=== PATIENT | female | born 1965 | race Caucasian/White ===

== ENCOUNTER 2023-05-18 08:49 | Outpatient (OUT) | payer BC, SELFPAY ==
--- NOTE | 2023-05-18 09:50 | FL_ITS ---
The [address] [address] Patient Name: CHADWICK MCFADDEN MRN: [id number] date: 1965 Sex: F Assigned Patient Location: [place] Current Patient Location: [place] Accession/Order Number: [id number] Exam Date: 05/18/2023 09:25 Report Date: 05/18/2023 10:41 At the request of: JOYCE REA Procedure: FL cineradiography PROCEDURE: FL upper GI w air, FL cineradiography COMPARISON: None. HISTORY: GERD, Chest Pain TECHNIQUE: An air contrast upper gastrointestinal series was performed in the usual manner. Standard level fluoroscopic mode of operation utilized. FINDINGS: ESOPHAGUS:Several episodes of mild gastroesophageal reflux. No abnormal dilation, stricture, or mucosal irregularity. No hiatal hernia. STOMACH: No obstruction, mass, or ulceration. Normal motility. DUODENUM:No ulceration or diverticulum. OTHER: Negative. FL/NM cineradiography IMPRESSION: 1. Several episodes of mild gastroesophageal reflux occurred during the study. Otherwise unremarkable examination. Electronically authenticated by: FELICIA HANSON Date: 05/18/2023 10:41
--- NOTE | 2023-05-18 09:50 | FL_ITS ---
The [address] [address] Patient Name: CHADWICK MCFADDEN MRN: [id number] date: 1965 Sex: F Assigned Patient Location: [place] Current Patient Location: [place] Accession/Order Number: [id number] Exam Date: 05/18/2023 09:25 Report Date: 05/18/2023 10:41 At the request of: JOYCE REA Procedure: FL upper GI w air PROCEDURE: FL upper GI w air, FL cineradiography COMPARISON: None. HISTORY: GERD, Chest Pain TECHNIQUE: An air contrast upper gastrointestinal series was performed in the usual manner. Standard level fluoroscopic mode of operation utilized. FINDINGS: ESOPHAGUS:Several episodes of mild gastroesophageal reflux. No abnormal dilation, stricture, or mucosal irregularity. No hiatal hernia. STOMACH: No obstruction, mass, or ulceration. Normal motility. DUODENUM:No ulceration or diverticulum. OTHER: Negative. FL/FL upper GI w air IMPRESSION: 1. Several episodes of mild gastroesophageal reflux occurred during the study. Otherwise unremarkable examination. Electronically authenticated by: FELICIA HANSON Date: 05/18/2023 10:41
== END 2023-05-18 08:50 | disposition home or self-care (01) ==
LOC: FL 08:49
PROVIDERS: PCP Family Medicine; Visit Provider Family Medicine
DX: R07.9 Chest pain, unspecified (principal); K21.9 Gastro-esophageal reflux disease without esophagitis
CPT/HCPCS: 74246; 76120

== ENCOUNTER 2023-05-30 09:23 | Outpatient (OUT) | payer BC, SELFPAY ==
--- NOTE | 2023-05-30 | CT_ITS ---
The [address] [address] Patient Name: CHADWICK MCFADDEN MRN: [id number] date: 1965 Sex: F Assigned Patient Location: CT Current Patient Location: Accession/Order Number: [id number] Exam Date: 05/30/2023 09:32 Report Date: 06/01/2023 07:58 At the request of: JOYCE REA Procedure: CT lung screening low-dose EXAMINATION: CT lung screening low-dose HISTORY: R07.9 chest pain COMPARISON: No relevant comparison available. TECHNIQUE: Axial, Coronal, and Sagittal images were created without the administration of IV contrast material. Dose reduction techniques were achieved by using automated exposure control and/or adjustment of mA and/or kV according to patient size and/or use of iterative reconstruction technique. FINDINGS: LUNGS: Scattered subcentimeter calcified and noncalcified pulmonary nodules. The largest noncalcified nodule measures 6 mm right lower lobe axial image 111/112 PLEURA: No mass, effusion, or pneumothorax. VASCULATURE: No abnormality. SHRUTHI: No mass or pathologic adenopathy. MEDIASTINUM: No mass or pathologic adenopathy. CARDIAC: No enlargement, pericardial thickening, or significant calcification. AORTA: No aortic aneurysm. Mild atherosclerosis CHEST WALL: No mass or axillary adenopathy BONES: No bone lesion or fracture. LIMITED ABDOMEN: No suspicious findings. Limited images of the upper abdomen. OTHER: Negative. CT/CT lung screening low-dose IMPRESSION: LUNG SCREENING: Lung-RADS Category 2- Benign Appearance or Behavior. Nodules with a very low likelihood of becoming a clinically active cancer due to size or lack of growth. 2. Continue annual screening with LDCT in 12 months. Electronically authenticated by: HUYEN KABA Date: 06/01/2023 07:58
== END 2023-05-30 09:24 | disposition home or self-care (01) ==
PROVIDERS: PCP Family Medicine; Visit Provider Family Medicine
DX: R07.9 Chest pain, unspecified (principal); R91.8 Other nonspecific abnormal finding of lung field
CPT/HCPCS: 71271

== ENCOUNTER 2023-10-30 08:27 | Outpatient (OUT) | payer BC, SELFPAY ==
[2023-10-30 09:09] LABS: Basophils Absolute Auto 0.1 10^3/uL (0.0-0.1); Basophils Percent Auto 0.7 % (0.2-2.0); Eosinophils Absolute Auto 0.6 10^3/uL (0.0-0.7); Eosinophils Percent Auto 6.4 % (0.9-7.0); Hematocrit 46.9 % (36.0-48.0); Immature Granulocytes Abs Auto 0.02 10^3/uL (0.00-0.03); Immature Granulocytes Pct Auto 0.2 % (0.0-0.5); Lymphocytes Absolute Auto 2.3 10^3/uL (1.2-3.8); Lymphocytes Percent Auto 24.9 % (20.5-60.0); Mean Corpuscular Hemoglobin 28.8 pg (26.7-34.0); Mean Corpuscular Volume 90.2 fL (81.0-99.0); Mean Platelet Volume 9.8 fL (9.5-13.5); Monocytes Absolute Auto 0.7 10^3/uL (0.3-0.8); Monocytes Percent Auto 7.3 % (1.7-12.0); Neutrophils Absolute Auto 5.5 10^3/uL (1.4-6.5); Neutrophils Percent Auto 60.5 % (43.0-75.0); Platelet Count 257 10^3/uL (150-450); Red Cell Distribution Width 12.2 % (11.0-15.0); White Blood Count 9.1 10^3/uL (4.0-11.0)
[2023-10-30 11:21] LABS: Alanine Aminotransferase 30 U/L (14-59); Albumin Level 3.7 g/dL (3.4-5.0); Alkaline Phosphatase 116 U/L (46-116); Anion Gap 12.7; Aspartate Amino Transferase 14 U/L (15-37); BUN Creatinine Ratio 14.1; Bilirubin Total 0.3 mg/dL (0.2-1.0); Calcium 9.1 mg/dL (8.5-10.1); Carbon Dioxide 30.5 mmol/L (21.0-32.0); Chloride 101 mmol/L (98-107); Chol HDL Ratio 4.9; Cholesterol 193 mg/dL (<=200); Estimated GFR (African America >60 (>=60); Estimated GFR (Non-African Ame >60 (>=60); Globulin 3.6 g/dL; Glucose 98 mg/dL (74-106); HDL Cholesterol 39 mg/dL (40-60); Potassium 4.2 mmol/L (3.5-5.1); Sodium 140 mmol/L (136-145); Thyroid Stimulating Hormone 0.913 uIU/mL (0.358-3.740); Total Protein 7.3 g/dL (6.4-8.2); Triglycerides 198 mg/dL (<=150); VLDL CHOLESTEROL 39.6 mg/dL
[2023-10-30 11:26] LABS: Free T4 0.95 ng/dL (0.76-1.46)
[2023-10-30 12:53] LABS: Estimated Average Glucose 123 mg/dL; Glycohemoglobin A1C 5.9 % (4.5-6.2)
== END 2023-10-30 08:28 | disposition home or self-care (01) ==
LOC: LAB 08:28
PROVIDERS: PCP Family Medicine; Visit Provider Family Medicine
DX: Z00.00 Encounter for general adult medical examination without abnormal findings (principal); Z12.11 Encounter for screening for malignant neoplasm of colon; R53.83 Other fatigue
CPT/HCPCS: 36415; 80053; 80061; 83036; 84439; 84443; 85025

== ENCOUNTER 2024-07-15 08:08 | Outpatient (OUT) | payer BC, SELFPAY ==
--- OUTSIDE RECORDS SUMMARY | 2024-07-15 08:29 | XMS_ITS | CCD ---
Author Organization [facility] CliniSyvt Care Team Providers Care Rn Building Name Role Phone Juli Barrios Unavailable DR JOYCE ARCE Primary Care Unavailable LAURA, DR MAR Admitting Unavailable LAURA, DR MAR Attending Unavailable LAURA, DR MAR Consulting Unavailable FELICIA ESTEVEZ Consulting Unavailable LARRY MADDOX Consulting Unavailable ÁLVARO, DR COOK Admitting Unavailable ÁLVARO, DR COOK Attending Unavailable ÁLVARO, DR COOK Primary Care Unavailable ÁLVARO, DR COOK Consulting Unavailable Saumya Bravo Unavailable Justin ESCUDERO Attending Unavailable Joyce Arce Referring Unavailable Allergies Allergy Classification Reported Allergen(s) Allergy Type Date of Onset Reaction(s) Facility (3 sources) penicillAMINE Drug Allergy hives [facility] [employer] Other (3 sources) cillin's Propensity to adverse reactions Unknown [facility] [employer] Other (1 source) Penicillin Drug Allergy [facility] Repository (2 sources) Cephalexin; Translations: [Keflex] Drug Allergy Unknown [facility] Repository (1 source) Penicillins; Translations: [penicillins] Propensity to adverse reactions (disorder) [facility] Repository Medications Current Medications Medication Drug Class(es) Dates Sig (Normalized) Sig (Original) [id number] 200 actuat albuterol 0.09 mg/actuat metered dose inhaler (1 source) beta2-Adrenergic Agonist Start: 05-22-2023 take 2 puff(s) by inhalation four times daily as needed Albuterol Sulfate HFA 108 (90 Base) MCG/ACT 2 puffs Inhalation 4 times a day prn Apr, Active amLODIPine 5 mg oral tablet (2 sources) Dihydropyridine Calcium Channel [place] amLODIPine Besylate 5 MG Oral for 30 Days Active azithromycin 250 mg oral tablet (1 source) Macrolide Antimicrobial Start: 05-22-2023 Azithromycin 250 MG 2 tablet on the first day, then 1 tablet daily for 4 days Orally Once a day for 5 day(s) Apr, Active benzonatate 200 mg oral capsule (1 source) Non-narcotic Antitussive Start: 05-22-2023 take 1 capsule by mouth every eight hours Benzonatate 200 MG 1 capsule Orally Three times a day Apr, Active cholecalciferol 0.05 mg oral capsule (2 sources) Vitamin D take 1 capsule by mouth once daily Vitamin D3 50 MCG (1999) take 1 capsule by mouth once daily Oral for 30 Days Active Lisinopril (3 sources) Angiotensin Converting Enzyme Inhibitor Lisinopril Active predniSONE 20 mg oral tablet (4 sources) Start: 05-28-2022 take 1 tablet by mouth every twelve hours predniSONE 20 MG 1 tablet Orally bid for 5 day(s) Apr, Active Completed/Discontinued Medications Medication Drug Class(es) Dates Sig (Normalized) Sig (Original) famotidine 20 mg oral tablet (3 sources) Histamine-2 Receptor Antagonist Start: 02-25-2021 take 1 tablet by mouth every twelve hours Famotidine 20 MG 1 tablet Orally Twice a day for 7 days Feb, Not-Taking fluticasone propionate 0.05 mg/actuat metered dose nasal spray (3 sources) Corticosteroid Start: 05-28-2022 take 2 spray(s) nasal route once daily Fluticasone Propionate 50 MCG/ACT 2 sprays Nasally Once a day for 14 day(s) May, Not-Taking omeprazole 20 mg delayed release oral capsule (2 sources) Proton Pump Inhibitor Start: 04-17-2023 Omeprazole 20 MG 1 capsule daily Orally Once a day for 30 days Mar, Not-Taking Problems Active Problems Problem Classification Problem Date Documented Da te Episodic/Chronic Chronic obstructive pulmonary disease and bronchiectasis (1 source) Bronchitis, not specified as acute or chronic Episodic Esophageal disorders (4 sources) Gastro-esophageal reflux disease without esophagitis; Translations: [Gastroesophageal reflux disease] Onset: 09-10-2021 Chronic Essential hypertension (4 sources) Hypertensive disorder; Translations: [Essential (primary) hypertension] Onset: 09-10-2021 Chronic Immunizations and screening for infectious disease (1 source) Contact with and (suspected) exposure to other viral communicable diseases Episodic Other upper respiratory infections (1 source) Acute sinusitis, unspecified Episodic Substance-related disorders (3 sources) Nicotine dependence, cigarettes, uncomplicated; Translations: [Smoker] Onset: 09-10-2021 Chronic Unclassified (1 source) ESOPHAGITIS UNSPEC WITHOUT BLEEDING; Translations: [ESOPHAGITIS UNSPEC WITHOUT BLEEDING] Onset: 09-10-2021 Past or Other Problems Problem Classification Problem Date Documented Da te Episodic/Chronic Nonspecific chest pain (3 sources) Chest pain, unspecified; Translations: [CHEST PAIN UNSPECIFIED] Onset: 09-07-2021 Episodic Other aftercare (1 source) Other magneto specialist (current) drug therapy; Translations: [OTH GROUP HOME CURRENT DRUG THERAPY] Onset: 09-10-2021 Episodic Results Test Name Value Interpretation Reference Range Facility [facility] 06-03-2023 Forms [id number] 1#1.00TIFF Normal [facility] Ambulatory Visit Summaryon 1 Ambulatory Visit Summary CHADWICK MCFADDEN :1965 Visit Date:06/02/2023 Ambulatory Visit Instructions Your Care Team Attending Physician - Justin ESCUDERO MD Primary Care Physician - Joyce Arce MD Referring Physician - Joyce Arce MD This Is Your Medications List Contact prescribing physician if questions or concerns amlodipine (amLODIPine 5 mg Tab) ergocalciferol (Vitamin D2 2000 intl units oral capsule) famotidine (famotidine 20 mg Tab) lisinopril (lisinopril 40 mg Tab) pantoprazole (Protonix 40 mg Tab-DR) sucralfate (Carafate 1 gram Tab) Procedures Performed Cholecystectomy, Partial substernal thyroidectomy, Tubal . Discharge Vitals Heart Rate (Peripheral) 76 Respiratory Rate 16 Blood Pressure 152/92 Height 157.4 cm Height 62 in Weight 72 kg Weight 158.4 lb BMI 29.06 Medications What How Much When Instructions Unchanged amlodipine (amLODIPine 5 mg Tab) 1 Tablets By Mouth Every day Contact prescribing physician if questions or concerns Unchanged ergocalciferol (Vitamin D2 2000 intl units oral capsule) 1 Capsules By Mouth Every day Contact prescribing physician if questions or concerns Unchanged famotidine (famotidine 20 mg Tab) 1 Tablets By Mouth 2 times a day Contact prescribing physician if questions or concerns Unchanged lisinopril (lisinopril 40 mg Tab) 1 Tablets By Mouth Every day Contact prescribing physician if questions or concerns Unchanged pantoprazole (Protonix 40 mg Tab-DR) 1 Tablets By Mouth Every day Contact prescribing physician if questions or concerns Unchanged sucralfate (Carafate 1 gram Tab) 1 Tablets By Mouth Four times a day (before meals and at bedtime) Contact prescribing physician if questions or concerns Allergies Keflex (Hives) penicillins (Hives) Problems Ongoing - Any problem that you are currently receiving treatment for. Anxiety BMI 29.0-29.9,adult Cervical disc disease Chronic obstructive pulmonary disease Depression GERD (gastroesophageal reflux disease) HTN (hypertension) Overweight Tension type headache Vitamin D deficiency Normal [facility] RAD - MISCon 05-20-2023 RAD - MIS [id number] 1.00CD:127 Normal [facility] Physician Referralon 023 Physician Referral [id number] 1.00CD:127 Normal [facility] Physician Referral [id number] 1.00CD:127 Normal [facility] INSULINon 08-23-2022 Insulin 8.0 uIU/mL Normal 2.6-24.9 [facility] Comment on above: Performed By: #### L IPID, CMP, TSH, T7 #### [facility] [address] [address] [address] Kareen Manzanares CBC AUTO DIFFon 08-22-2022 BASO # 0.1 103/ul Normal 0.0-0.1 [facility] Comment on above: Performed By: #### L IPID, CMP, TSH, T7 #### [facility] [address] [address] [address] Kareen Manzanares Basophils/100 WBC (Bld) 0.7 % Normal 0.2-2.0 [facility] Comment on above: Performed By: #### L IPID, CMP, TSH, T7 #### [facility] [address] [place] [address] Dr. Kareen Manzanares EO # 0.4 103/ul Normal 0.0-0.7 [facility] Comment on above: Performed By: #### L IPID, CMP, TSH, T7 #### [facility] [address] [place] [address] Dr. Kareen Manzanares Eosinophils/100 WBC (Bld) 4.7 % Normal 0.9-7.0 [facility] Comment on above: Performed By: #### L IPID, CMP, TSH, T7 #### [facility] [address] [place] [address] Dr. Kareen Manzanares Erythrocyte distribution width (RBC) [Ratio] 12.3 % Normal 11.0-15.0 [facility] Comment on above: Performed By: #### L IPID, CMP, TSH, T7 #### [facility] [address] [place] [address] Dr. Kareen Manzanares Hematocrit (Bld) [Volume fraction] 45.4 % Normal 36.0-48.0 [facility] Comment on above: Performed By: #### L IPID, CMP, TSH, T7 #### [facility] [address] [place] [address] Dr. Kareen Manzanares Hemoglobin (Bld) [Mass/Vol] 14.7 g/dL Normal 12.0-16.0 [facility] Comment on above: Performed By: #### L IPID, CMP, TSH, T7 #### [facility] [address] [place] [address] Dr. Kareen Manzanares IG # 0.02 10e3/ul Normal 0.00-0.03 [facility] Comment on above: Performed By: #### L IPID, CMP, TSH, T7 #### [facility] [address] [place] [address] Dr. Kareen Manzanares IG % 0.2 % Normal 0.0-0.5 [facility] Comment on above: Performed By: #### L IPID, CMP, TSH, T7 #### [facility] [address] [place], [place] [id number] Dr. Kareen Manzanares LYMPH # 2.5 103/ul Normal 1.2-3.8 [facility] Comment on above: Performed By: #### L IPID, CMP, TSH, T7 #### [facility] [address] [place] [address] Dr. Kareen Manzanares Lymphocytes/100 WBC (Bld) 27.3 % Normal 20.5-60.0 [facility] Comment on above: Performed By: #### L IPID, CMP, TSH, T7 #### [facility] [address] [place] [address] Dr. Kareen Manzanares MANUAL DIFF REQ NO Normal [facility] Comment on above: Performed By: #### L IPID, CMP, TSH, T7 #### [facility] [address] [place] [address] Dr. Kareen Manzanares MCH (RBC) [Entitic mass] 29.1 pg Normal 26.7-34.0 [facility] Comment on above: Performed By: #### L IPID, CMP, TSH, T7 #### [facility] [address] [place] [address] Dr. Kareen Manzanares MCHC (RBC) [Mass/Vol] 32.4 g/dL Normal 29.9-35.2 [facility] Comment on above: Performed By: #### L IPID, CMP, TSH, T7 #### [facility] [address] [place] [address] Dr. Kareen Manzanares MCV (RBC) [Entitic vol] 89.7 fL Normal 81.0-99.0 [facility] Comment on above: Performed By: #### L IPID, CMP, TSH, T7 #### [facility] [address] [place] [address] Dr. Kareen Manzanares MONO # 0.7 103/ul Normal 0.3-0.8 [facility] Comment on above: Performed By: #### L IPID, CMP, TSH, T7 #### [facility] [address] [place] [address] Dr. Kareen Manzanares Monocytes/100 WBC (Bld) 7.8 % Normal 1.7-12.0 [facility] Comment on above: Performed By: #### L IPID, CMP, TSH, T7 #### [facility] [address] [place] [address] Dr. Kareen Manzanares NEUT # 5.4 103/ul Normal 1.4-6.5 [facility] Comment on above: Performed By: #### L IPID, CMP, TSH, T7 #### [facility] [address] [place] [address] Dr. Kareen Manzanares Neutrophils/100 WBC (Bld) 59.3 % Normal 43.0-75.0 [facility] Comment on above: Performed By: #### L IPID, CMP, TSH, T7 #### [facility] [address] [place] [address] Dr. Kareen Manzanares Platelet mean volume (Bld) [Entitic vol] 9.8 fL Normal 9.5-13.5 [facility] Comment on above: Performed By: #### L IPID, CMP, TSH, T7 #### [facility] [address] [place] [address] Dr. Kareen Manzanares PLT 315 103/ul Normal 150-450 [facility] Comment on above: Performed By: #### L IPID, CMP, TSH, T7 #### [facility] [address] [place] [address] Dr. Kareen Manzanares RBC 5.06 106/ul Normal 4.20-5.40 [facility] Comment on above: Performed By: #### L IPID, CMP, TSH, T7 #### [facility] [address] [place] [address] Dr. Kareen Manzanares WBC 9.1 103/ul Normal 4.0-11.0 [facility] Comment on above: Performed By: #### L IPID, CMP, TSH, T7 #### [facility] [address] [place] [address] Dr. Kareen Manzanares FREE THYROXINE INDEX T7on -2021 FTI 2.49 Normal 1.30-4.50 [facility] Comment on above: Performed By: #### L IPID, CMP, TSH, T7 #### [facility] [address] [address] [address] Kareen Manzanares T3U 35.0 % Normal 30.0-39.0 [facility] Comment on above: Performed By: #### L IPID, CMP, TSH, T7 #### [facility] [address] [address] [address] Kareen Manzanares T4 [Mass/Vol] 7.10 ug/dL Normal 4.80-13.90 [facility] Comment on above: Performed By: #### L IPID, CMP, TSH, T7 #### [facility] [address] [address] [address] Kareen Manzanares GLYCOHEMOGLOBIN A1Con 2021 ADA RECOMMENDATION SEE BELOW Normal [facility] Comment on above: Result Comment: ADA RECOMMENDED LIMIT 4.0 - 6.0 ADA THERAPEUTIC TARGET < 7.0 ACTION SUGGESTED > 7.0 Performed By: #### L IPID, CMP, TSH, T7 #### [facility] [address] [address] [address] Kareen Manzanares Glucose [Mass/Vol] 120 mg/dL Normal [facility] Comment on above: Performed By: #### L IPID, CMP, TSH, T7 #### [facility] [address] [address] [address] Kareen Manzanares HbA1c (Bld) [Mass fraction] 5.8 % Normal 4.5-6.2 [facility] Comment on above: Performed By: #### L IPID, CMP, TSH, T7 #### [facility] [address] [address] [address] Kareen Manzanares IRONon 08-22-2022 Iron [Mass/Vol] 134.0 ug/dL Normal 50.0-170.0 [facility] [place] Comment on above: Performed By: #### I HEIDI NASCIMENTO #### [facility] [address] [address] [address] Kareen Manzanares LIPID PROFILEon 08-22-2022 CHOL-HDL RATIO NORM SEE BELOW Normal [facility] Comment on above: Result Comment: 3.3 - 4.4 LOW RISK 4.4 - 7.1 AVERAGE RISK 7.1 - 11.0 MODERATE RISK >11.0 HIGH RISK Performed By: #### L IPID, CMP, TSH, T7 #### [facility] [address] [address] [address] Kareen Manzanares Cholesterol [Mass/Vol] 202 mg/dL Critically high <=200 [facility] Comment on above: Performed By: #### L IPID, CMP, TSH, T7 #### [facility] [address] [address] [address] Kareen Manzanares Cholesterol in HDL [Mass/Vol] 36 mg/dL Critically low 40-60 [facility] Comment on above: Performed By: #### L IPID, CMP, TSH, T7 #### [facility] [address] [address] [address] Kareen Manzanares Cholesterol in LDL [Mass/Vol] 120.2 mg/dL Normal [facility] Comment on above: Performed By: #### L IPID, CMP, TSH, T7 #### [facility] [address] [address] [address] Kareen Manzanares Cholesterol.total/Ch olesterol in HDL [Mass ratio] 5.6 {ratio} Normal [facility] Comment on above: Performed By: #### L IPID, CMP, TSH, T7 #### [facility] [address] [address] [address] Kareen Manzanares HDL NORMAL > or = 60 mg/dl - LOW CARDIOVASCULAR RISK <40 mg/dl - HIGH CARDIOVASCULAR RISK Normal [facility] Comment on above: Performed By: #### L IPID, CMP, TSH, T7 #### [facility] [address] [address] [address] Kareen Manzanares LDL CALC NORMAL SEE BELOW Normal [facility] Comment on above: Result Comment: <100 mg/dl OPTIMAL 100 - 129 mg/dl NEAR OR ABOVE OPTIMAL 130 - 159 mg/dl BORDERLINE HIGH 160 - 189 mg/dl HIGH >190 mg/dl VERY HIGH Performed By: #### L IPID, CMP, TSH, T7 #### [facility] [address] [address] [address] Kareen Manzanares Triglyceride [Mass/Vol] 229 mg/dL Critically high <=150 [facility] Comment on above: Performed By: #### L IPID, CMP, TSH, T7 #### [facility] [address] [address] [address] Kareen Manzanares VLDL CALC 45.8 mg/dL Normal [facility] Comment on above: Performed By: #### L IPID, CMP, TSH, T7 #### [facility] [address] [address] [address] Kareen Manzanares PROF 14(COMP METB)on 022 Albumin [Mass/Vol] 3.8 g/dL Normal 3.4-5.0 [facility] Comment on above: Performed By: #### L IPID, CMP, TSH, T7 #### [facility] [address] [place] [address] Dr. Kareen Manzanares Albumin/Globulin [Mass ratio] 1.1 {ratio} Normal [facility] Comment on above: Performed By: #### L IPID, CMP, TSH, T7 #### [facility] [address] [address] [address] Kareen Manzanares ALP [Catalytic activity/Vol] 136 U/L Critically high 46-116 [facility] Comment on above: Performed By: #### L IPID, CMP, TSH, T7 #### [facility] [address] [place] [address] Dr. Kareen Manzanares ALT [Catalytic activity/Vol] 30 U/L Normal 14-59 [facility] Comment on above: Performed By: #### L IPID, CMP, TSH, T7 #### [facility] [address] [address] [address] Kareen Manzanares Anion gap [Moles/Vol] 14.5 mmol/L Normal [facility] Comment on above: Performed By: #### L IPID, CMP, TSH, T7 #### [facility] [address] [address] [address] Kareen Manzanares AST [Catalytic activity/Vol] 24 U/L Normal 15-37 [facility] Comment on above: Performed By: #### L IPID, CMP, TSH, T7 #### [facility] [address] [address] [address] Kareen Manzanares Bilirubin [Mass/Vol] 0.3 mg/dL Normal 0.2-1.0 [facility] Comment on above: Performed By: #### L IPID, CMP, TSH, T7 #### [facility] [address] [address] [address] Kareen Manzanares Calcium [Mass/Vol] 9.4 mg/dL Normal 8.5-10.1 [facility] Comment on above: Performed By: #### L IPID, CMP, TSH, T7 #### [facility] [address] [place] [address] Dr. Kareen Manzanares Chloride [Moles/Vol] 98 mmol/L Normal 98-107 [facility] Comment on above: Performed By: #### L IPID, CMP, TSH, T7 #### [facility] [address] [place] [address] Dr. Kareen Manzanares CO2 [Moles/Vol] 28.7 mmol/L Normal 21.0-32.[address] [facility] Comment on above: Performed By: #### L IPID, CMP, TSH, T7 #### [facility] [address] [place] [address] Dr. Kareen Manzanares Creatinine [Mass/Vol] 0.67 mg/dL Normal 0.55-1.02 [facility] Comment on above: Performed By: #### L IPID, CMP, TSH, T7 #### [facility] [address] [place] [address] Dr. Kareen Manzanares EGFR-AF SAUDI ARABIAN >60 Normal >=[address] [facility] Comment on above: Performed By: #### L IPID, CMP, TSH, T7 #### [facility] [address] [place] [address] Dr. Kareen Manzanares EGFR-NON AF SAUDI ARABIAN >60 Normal >=60 [facility] Comment on above: Performed By: #### L IPID, CMP, TSH, T7 #### [facility] [address] [place], [place] [id number] Dr. Kareen Manzanares Globulin (S) [Mass/Vol] 3.6 g/dL Normal [facility] Comment on above: Performed By: #### L IPID, CMP, TSH, T7 #### [facility] [address] [place] [address] Dr. Kareen Manzanares Glucose [Mass/Vol] 104 mg/dL Normal 74-106 [facility] Comment on above: Performed By: #### L IPID, CMP, TSH, T7 #### [facility] [address] [place] [address] Dr. Kareen Manzanares Potassium [Moles/Vol] 4.2 mmol/L Normal 3.5-5.1 [facility] Comment on above: Performed By: #### L IPID, CMP, TSH, T7 #### [facility] [address] [place] [address] Dr. Kareen Manzanares Protein [Mass/Vol] 7.4 g/dL Normal 6.4-8.2 [facility] Comment on above: Performed By: #### L IPID, CMP, TSH, T7 #### [facility] [address] [place] [address] Dr. Kareen Manzanares Sodium [Moles/Vol] 137 mmol/L Normal 136-145 [facility] Comment on above: Performed By: #### L IPID, CMP, TSH, T7 #### [facility] [address] [address] [address] Kareen Manzanares Urea nitrogen [Mass/Vol] 10.0 mg/dL Normal 7.0-18.0 [facility] Comment on above: Performed By: #### L IPID, CMP, TSH, T7 #### [facility] [address] [address] [address] Kareen Manzanares Urea nitrogen/Creatinine [Mass ratio] 14.9 mg/mg Normal [facility] Comment on above: Performed By: #### L IPID, CMP, TSH, T7 #### [facility] [address] [address] [address] Kareen Manzanares TSHon 08-22-2022 TSH 0.678 uIU/mL Normal 0.358-3.740 [facility] Comment on above: Performed By: #### L IPID, CMP, TSH, T7 #### [facility] [address] [place], [place] [address] Dr. Kareen Manzanares VITAMIN D 25 OHon 08-22-2022 VIT D 25-OH 26.6 ng/mL Normal [facility] Comment on above: Performed By: #### I AZAM VITAD #### [facility] [address] [place], [place] [address] Dr. Kareen Manzanares VIT D RANGES SEE BELOW Normal [facility] Comment on above: Result Comment: <20 ng/mL Vit D deficient 20 - <30 ng/mL Vit D insufficient 30 - 100 ng/mL Vit D sufficient >100 ng/mL Potential Toxicity Performed By: #### I AZAM VITAD #### [facility] [address] [place], [place] [address] Dr. Kareen Manzanares COVID Quick Testingon 2021 Result Negative Elastifile Other CT Chest w/Contraston 2021 CT Chest w/Contrast HISTORY: Follow-up groundglass opacities. COMPARISON: CT chest 09/07/2021 TECHNIQUE: Multiple contiguous axial images of the chest were obtained following IV administration of 100 mL Isovue 300. Multiplanar reformats were acquired. All CT scans at this facility use dose modulation, iterative reconstruction, and/or weight based dosing when appropriate to reduce radiation dose to as low as reasonably achievable. FINDINGS: No axillary, mediastinal, or hilar lymphadenopathy. No thoracic aortic aneurysm or dissection. Atherosclerotic disease of the thoracic aorta. Heart size is within normal limits. No significant pericardial effusion. The esophagus is within normal limits. Stable tiny sub-solid right upper lobe nodule as seen on axial image 26 of 60. New right upper lobe sub-solid nodule measuring approximately 6 mm as seen on axial image 18 of 60. Stable sub-solid 4 mm nodule of the right middle lobe as seen on axial image 31 of 60. Stable tubular mid right middle lob nodule is seen on axial image 32 of 60. Stable 2 mm right middle lobe nodule is seen on axial image 26 of 60. Previously seen sub-solid 4 mm nodule of the left lower lobe is no longer definitively identified. Multiple additional tiny nodules are scattered throughout both lungs and do not appear significant changed. No consolidation, pneumothorax, or pleural effusion. No acute osseous abnormality. Visualized upper abdomen demonstrates no acute abnormality. IMPRESSION: New sub-solid 6 mm right upper lobe is nonspecific and may be infectious/inflammat ory in etiology. Previously seen nodules are stable. Follow-up CT of the chest without contrast in 6 months is recommended. Report reported and signed by Curtis Colvin on 01/08/2022 1156 Normal [facility] Specialist BNPon 09-07-2021 Natriuretic peptide B (Bld) [Mass/Vol] 46.0 pg/mL Normal <=900.0 [facility] Comment on above: Performed By: #### B MINI BACCARAT DEALER, HSTROPN, BMP #### [facility] [address] [address] [address] Kareen Manzanares CBC AUTO DIFFon 09-07-2021 BASO # 0.0 103/ul Normal 0.0-0.1 [facility] Comment on above: Performed By: #### L IPID, CMP, TSH, T7 #### [facility] [address] [address] [address] Kareen Manzanares Basophils/100 WBC (Bld) 0.3 % Normal 0.2-2.0 [facility] Comment on above: Performed By: #### L IPID, CMP, TSH, T7 #### [facility] [address] [address] [address] Kareen Manzanares EO # 0.1 103/ul Normal 0.0-0.7 [facility] Comment on above: Performed By: #### L IPID, CMP, TSH, T7 #### [facility] [address] [address] [address] Kareen Manzanares Eosinophils/100 WBC (Bld) 1.4 % Normal 0.9-7.0 [facility] Comment on above: Performed By: #### L IPID, CMP, TSH, T7 #### [facility] [address] [address] [address] Kareen Manzanares Erythrocyte distribution width (RBC) [Ratio] 12.8 % Normal 11.0-15.0 [facility] Comment on above: Performed By: #### L IPID, CMP, TSH, T7 #### [facility] [address] [place] [address] Dr. Kareen Manzanares Hematocrit (Bld) [Volume fraction] 44.1 % Normal 36.0-48.0 [facility] Comment on above: Performed By: #### L IPID, CMP, TSH, T7 #### [facility] [address] [place] [address] Dr. Kareen Manzanares Hemoglobin (Bld) [Mass/Vol] 14.7 g/dL Normal 12.0-16.0 [facility] Comment on above: Performed By: #### L IPID, CMP, TSH, T7 #### [facility] [address] [place] [address] Dr. Kareen Manzanares IG # 0.03 10e3/ul Normal 0.00-0.03 [facility] Comment on above: Performed By: #### L IPID, CMP, TSH, T7 #### [facility] [address] [place] [address] Dr. Kareen Manzanares IG % 0.3 % Normal 0.0-0.5 [facility] Comment on above: Performed By: #### L IPID, CMP, TSH, T7 #### [facility] [address] [place] [address] Dr. Kareen Manzanares LYMPH # 2.3 103/ul Normal 1.2-3.8 [facility] Comment on above: Performed By: #### L IPID, CMP, TSH, T7 #### [facility] [address] [place] [address] Dr. Kareen Manzanares Lymphocytes/100 WBC (Bld) 24.0 % Normal 20.5-60.0 [facility] Comment on above: Performed By: #### L IPID, CMP, TSH, T7 #### [facility] [address] [place] [address] Dr. Kareen Manzanares MANUAL DIFF REQ NO Normal [facility] Comment on above: Performed By: #### L IPID, CMP, TSH, T7 #### [facility] [address] [place] [address] Dr. Kareen Manzanares MCH (RBC) [Entitic mass] 28.8 pg Normal 26.7-34.0 [facility] Comment on above: Performed By: #### L IPID, CMP, TSH, T7 #### [facility] [address] [place] [address] Dr. Kareen Manzanares MCHC (RBC) [Mass/Vol] 33.3 g/dL Normal 29.9-35.2 [facility] Comment on above: Performed By: #### L IPID, CMP, TSH, T7 #### [facility] [address] [place] [address] Dr. Kareen Manzanares MCV (RBC) [Entitic vol] 86.3 fL Normal 81.0-99.0 [facility] Comment on above: Performed By: #### L IPID, CMP, TSH, T7 #### [facility] [address] [place] [address] Dr. Kareen Manzanares MONO # 0.4 103/ul Normal 0.3-0.8 [facility] Comment on above: Performed By: #### L IPID, CMP, TSH, T7 #### [facility] [address] [place] [address] Dr. Kareen Manzanares Monocytes/100 WBC (Bld) 4.2 % Normal 1.7-12.0 [facility] Comment on above: Performed By: #### L IPID, CMP, TSH, T7 #### [facility] [address] [place] [address] Dr. Kareen Manzanares NEUT # 6.7 103/ul Critically high 1.4-6.5 [facility] Comment on above: Performed By: #### L IPID, CMP, TSH, T7 #### [facility] [address] [place] [address] Dr. Kareen Manzanares Neutrophils/100 WBC (Bld) 69.8 % Normal 43.0-75.0 [facility] Comment on above: Performed By: #### L IPID, CMP, TSH, T7 #### [facility] [address] [place] [address] Dr. Kareen Manzanares Platelet mean volume (Bld) [Entitic vol] 9.3 fL Critically low 9.5-13.5 [facility] Comment on above: Performed By: #### L IPID, CMP, TSH, T7 #### [facility] [address] [address] [address] Kareen Manzanares PLT 314 103/ul Normal 150-450 [facility] Comment on above: Performed By: #### L IPID, CMP, TSH, T7 #### [facility] [address] [address] [address] Kareen Manzanares RBC 5.11 106/ul Normal 4.20-5.40 [facility] Comment on above: Performed By: #### L IPID, CMP, TSH, T7 #### [facility] [address] [address] [address] Kareen Manzanares WBC 9.5 103/ul Normal 4.0-11.0 [facility] Comment on above: Performed By: #### L IPID, CMP, TSH, T7 #### [facility] [address] [address] [address] Kareen Manzanares D-DIMERon 09-07-2021 D-DIMER 0.52 mg/L FEU Critically high 0.19-0.50 [facility] Comment on above: Performed By: #### L IPID, CMP, TSH, T7 #### [facility] [address] [address] [address] Kareen Manzanares D-DIMER COMMENTS SEE BELOW Normal [facility] Comment on above: Result Comment: Incr eases in D-Dimer concentration observed with thromboembolic events can be variable due to localization, size, and age of the thrombus. Therefore, a thromboembolic event cannot be diagnosed with certainty on the basis of the reference range. D-Dimers may also be elevated for a variety of disorders including: advanced age, , coronary disease, cancer, liver disease, infection, inflammation, hematoma, DIC, trauma, post-surgery, diabetes, thrombolytic or anticoagulant therapy, stress, and generalized hospitalization. critical value repeated and verified Performed By: #### L IPID, CMP, TSH, T7 #### [facility] [address] [place] [address] Dr. Kareen Manzanares PROF CHEM 8 (BAS METB)on Anion gap [Moles/Vol] 16.2 mmol/L Normal [facility] Comment on above: Performed By: #### L IPID, CMP, TSH, T7 #### [facility] [address] [place] [address] Dr. Kareen Manzanares Calcium [Mass/Vol] 9.7 mg/dL Normal 8.4-10.2 [facility] Comment on above: Performed By: #### L IPID, CMP, TSH, T7 #### [facility] [address] [place] [address] Dr. Kareen Manzanares Chloride [Moles/Vol] 96 mmol/L Critically low 98-107 [facility] Comment on above: Performed By: #### L IPID, CMP, TSH, T7 #### [facility] [address] [place] [address] Dr. Kareen Manzanares CO2 [Moles/Vol] 25.3 mmol/L Normal 22.0-30.0 [facility] Comment on above: Performed By: #### L IPID, CMP, TSH, T7 #### [facility] [address] [place] [address] Dr. Kareen Manzanares Creatinine [Mass/Vol] 0.81 mg/dL Normal 0.52-1.04 [facility] Comment on above: Performed By: #### L IPID, CMP, TSH, T7 #### [facility] [address] [place] [address] Dr. Kareen Manzanares EGFR-AF SAUDI ARABIAN >60 Normal >=60 [facility] Comment on above: Performed By: #### L IPID, CMP, TSH, T7 #### [facility] [address] [place] [address] Dr. Kareen Manzanares EGFR-NON AF SAUDI ARABIAN >60 Normal >=60 [facility] Comment on above: Performed By: #### L IPID, CMP, TSH, T7 #### [facility] [address] [place] [address] Dr. Kareen Manzanares Glucose [Mass/Vol] 194 mg/dL Critically high 74-106 [facility] Comment on above: Performed By: #### L IPID, CMP, TSH, T7 #### [facility] [address] [address] [address] Kareen Manzanares Potassium [Moles/Vol] 3.5 mmol/L Normal 3.4-5.0 [facility] Comment on above: Performed By: #### L IPID, CMP, TSH, T7 #### [facility] [address] [address] [address] Kareen Manzanares Sodium [Moles/Vol] 134 mmol/L Critically low 137-145 [facility] Comment on above: Performed By: #### L IPID, CMP, TSH, T7 #### [facility] [address] [place] [address] Dr. Kareen Manzanares Urea nitrogen [Mass/Vol] 10.0 mg/dL Normal 7.0-17.0 [facility] Comment on above: Performed By: #### L IPID, CMP, TSH, T7 #### [facility] [address] [address] [address] Kareen Manzanares Urea nitrogen/Creatinine [Mass ratio] 12.3 mg/mg Normal [facility] Comment on above: Performed By: #### L IPID, CMP, TSH, T7 #### [facility] [address] [place] [address] Dr. Kareen Manzanares TROPONIN, HIGH SENSITIVITYon 09-07-2021 HSTROP 15.5 pg/mL Normal 4.0-35.5 [facility] Comment on above: Result Comment: CUT- OFF POINTS HAVE BEEN ESTABLISHED BASED ON THE FOURTH UNIVERSAL DEFINITIONS OF MYOCARDIAL INFARCTION. THE UPPER REFERENCE LIMIT (URL) OF TROPONIN, DEFINED THE 99TH PERCENTILE OF cTnI DISTRIBUTION IN A REFERENCE POPULATION, HAS BEEN CONFIRMED THE DECISION THRESHOLD FOR IN DIAGNOSIS. Performed By: #### B MINI BACCARAT DEALER, HSTROPN, BMP #### [facility] [address] [address] [address] Kareen Manzanares XR CHEST 1 Von 09-07-2021 XR CHEST 1 V EXAMINATION: XR CHEST 1 V, 09/07/2021 12:56 PM EST HISTORY: CHEST PAIN, UNSPECIFIED COMPARISON: Chest 10/22/2011. TECHNIQUE: Chest x-ray: One view. FINDINGS: SUPPORT APPARATUS/POST-SURGI TEREZA CHANGES: None. CARDIOMEDIASTINAL SILHOUETTE: Normal. AIRWAYS/LUNGS: Low lung volumes with probable vascular crowding at the lung bases. No focal consolidation. PLEURAL SPACES: No pleural effusion or pneumothorax. BONES AND SOFT TISSUES: No acute abnormality. IMPRESSION: No acute cardiopulmonary process. Electronically authenticated by: FELICIA ESTEVEZ Date: 2021-09-07 13:30 Normal [facility] Vital Signs Date Time Vital Sign Value Performing Clinician Facility 05-22-2023 09:45-0400 Body height 161.29 cm Juli Barrios Other [facility] Other 05-22-2023 09:45-0400 Body mass index (BMI) [Ratio] 25.87 kg/m2 Juli Barrios Other [facility] Other 05-22-2023 09:45-0400 Body temperature 98.1 [degF] Juli Barrios Other [facility] Other 05-22-2023 09:45-0400 Body weight 67.31 kg Juli Barrios Other [facility] Other 05-22-2023 09:45-0400 Diastolic blood pressure 65 mm[Hg] Juli Barrios Other [facility] Other 05-22-2023 09:45-0400 Respiratory rate 18 /min Juli Barrios Other [facility] Other 05-22-2023 09:45-0400 SaO2% (BldA) [Mass fraction] 96 % Juli Barrios Other [facility] Other 05-22-2023 09:45-0400 Systolic blood pressure 121 mm[Hg] Juli Burksmond Other [facility] Other 04-17-2023 09:10-0400 Body height 161.29 cm Saumya Bravo Other [facility] Other 04-17-2023 09:10-0400 Body mass index (BMI) [Ratio] 26.5 kg/m2 Saumya Bravo Other [facility] Other 04-17-2023 09:10-0400 Body temperature 97.8 [degF] Saumya Bravo Other [facility] Other 04-17-2023 09:10-0400 Body weight 68.95 kg Saumya Bravo Other [facility] Other 04-17-2023 09:10-0400 Diastolic blood pressure 69 mm[Hg] Saumya Bravo Other [facility] Other 04-17-2023 09:10-0400 Respiratory rate 18 /min Saumya Bravo Other [facility] Other 04-17-2023 09:10-0400 SaO2% (BldA) [Mass fraction] 95 % Saumya Bravo Other [facility] Other 04-17-2023 09:10-0400 Systolic blood pressure 129 mm[Hg] Saumya Bravo Other [facility] Other 05-28-2022 14:20-0400 Body height 161.29 cm Juli Burksmond Other [facility] Other 05-28-2022 14:20-0400 Body mass index (BMI) [Ratio] 26.15 kg/m2 Juli Sophie Other [facility] Other 05-28-2022 14:20-0400 Body temperature 98.8 [degF] Juli Sophie Other [facility] Other 05-28-2022 14:20-0400 Body weight 68.04 kg Juli Sophie Other [facility] Other 05-28-2022 14:20-0400 Diastolic blood pressure 78 mm[Hg] Juli Sophie Other [facility] Other 05-28-2022 14:20-0400 Respiratory rate 18 /min Juli Sophie Other [facility] Other 05-28-2022 14:20-0400 SaO2% (BldA) [Mass fraction] 95 % Juli Sophie Other [facility] Other 05-28-2022 14:20-0400 Systolic blood pressure 175 mm[Hg] Juli Sophie Other [facility] Other Encounters Encounter Date Encounter Type Care Provider Facility Start: 06-02-2023 End: 06-03-2023 ambulatory Justin ESCUDERO Facility:[facility] Start: 05-22-2023 End: 05-22-2023 ambulatory Juli Barrios Other [facility] Other Start: 05-22-2023 Office outpatient vi sit 15 minutes Juli [facility] Start: 05-19-2023 ambulatory Facility:[facility] Start: 04-17-2023 End: 04-17-2023 ambulatory Saumya Bravo Other [facility] Other Start: 04-17-2023 Office outpatient vi sit 15 minutes Saumya Bravo [facility] Start: 08-22-2022 End: 08-23-[address] JOYCE ARCE Facility:[facility] Start: 05-28-2022 End: 05-28-2022 ambulatory Juli Barrios Other [facility] Other Start: 05-28-2022 Office outpatient vi sit 15 minutes Juli Sophie [facility] Start: 09-07-2021 End: 09-07-[address] JOYCE ARCE Facility:[facility] Payers Date Payer Category Payer Unknown [id number] 1965 Unknown [id number] 1965 Unknown [id number] 1957 [facility] RL74 [id number] Social History Date Type Detail Facility Sex Assigned At [facility] Other Clinical Note 06-02-2023 Note Date & Type Note Facility 06-02-2023 Note Chief Complaint consultation for GERD HPI Staff 57 year old female presents on consultation from Dr. Arce for GERD. [facility] with complaint of epigastric/chest pain. Was taking OTC Famotidine without relief. Omeprazole 20mg daily was started. PCP visit 05/05 with complaint of worsening pain. Protonix 40mg daily and Carafate 1gm QID was started; patient stopped these approximately two weeks after starting medications due to hives. She continues Famotidine. States symptoms have greatly improved. UGI completed 05/18 with several episodes of mild GERD. History of Present Illness 57 yo female with h/o htn, COPD, cervical disc disease, referred for GERD; patient with severe episode of burning epigastric pain, radiating to chest; seen at Urgent care, given omeprazole, was taking over the counter H2 jordan; no improvement, seen by PCP and placed on Protonix and Carafate; developed hives 2 weeks after starting medicines, so she discontinued both medicines; GERD now much better, back on H2 jordan bid; made some dietary changes; recent UGI with mild episodes of reflux, no hiatal hernia; patient denies dysphagia or odynophagia, no wt loss or early satiety; no N/V; no night time symptoms; no asa use, takes Aleve prn; abd operations significant for cholecystectomy and salpingectomy for tubal ; no fmhx of GI malignancy or IBD; smokes daily. Review of Systems PHQ Score Initial Depression Screen Score: 0 ROS - Provider Constitutional: no fever, no sweats, no weight loss. Eyes: no glasses, no blurred vision, no visual loss. ENMT: no dentures, no hoarseness, no swallowing difficulties, no hearing loss, no ear infection(s), no nose bleeds. Cardiovascular: normal blood pressure, no chest pain, regular heartbeat, no heart murmur. Respiratory: no shortness of breath, no cough, no asthma, no wheezing. Gastrointestinal: no nausea, no vomiting, no diarrhea, no constipation, no blood in stool, no change in bowel habits, no abdominal pain, no hepatitis. Genitourinary: no kidney stones, no urine infection, no dysuria. Musculoskeletal: no pain, no weakness. Skin: no changing moles, no rash, no skin lumps. Neurologic: no seizures, no epilepsy, no headache. Psychiatric: no emotional or psychiatric problem. Heme/Lymph: no bleeding problems, no anemia, no blood clots, no transfusions. Allergy/Immunologic: no swollen lymph nodes/glands, no IV drug abuse. Other: Additional ROS info: Except as noted in the above Review of Systems and in the History of Present Illness, all other systems have been reviewed and are negative or noncontributory. Physical Exam Vitals & Measurements HR: 76(Peripheral) RR: 16 BP: 152/92 HT: 62 in HT: 157.4 cm WT: 72 kg WT: 158.4 lb BMI: 29.06 HEENT: normal conjunctiva, sclera clear, no scleral icterus, EOM intact, PERRLA, oral mucosa moist without lesions. Neck: trachea midline, no mass, symmetric, no thyromegaly or nodules, no adenopathy Respiratory: lungs CTA, respirations non labored. Cardiovascular: regular rate and rhythm, murmur, no pedal edema or varicosities. Gastrointestinal: soft, non distended, no tenderness, no masses, no palpable hernias, diastasis recti no, no hepatosplenomegaly; normal bs Lymphatic: no cervical adenopathy, no supraclavicular adenopathy. Musculoskeletal: normal gait, digits and nails without infection, nodes, cyanosis, clubbing. Skin: no rashes, no lesions, no ulcers, no subcutaneous nodules, induration. Psychiatric/Neuro: oriented to time, place, person, judgement normal, affect appropriate for age, insight intact, no focal deficits. Tests: labs reviewed, x-rays reviewed, review of old records completed , Assessment/Plan 1. Chronic GERD (K21.9: Gastro-esophageal reflux disease without esophagitis) improved; no need for EGD at this time; call with problems/questions; continue dietary changes/wt loss. 2. Tobacco use (Z72.0: Tobacco use) We strongly recommend to quit tobacco use. Cigarette smoking harms nearly every organ of the body, causes many diseases, and reduces the health of smokers in general. Quitting smoking lowers your risk for smoking-related diseases and can add years to your life. We encourage you to visit www.smokefree.gov access to helpful resources including free telephone support. If you decide on prescription treatment to help you quit, your family doctor would be happy to provide these. Follow-up No qualifying data available Problem List/Past Medical History Ongoing Anxiety BMI 29.0-29.9,adult Cervical disc disease Chronic GERD Chronic obstructive pulmonary disease Depression GERD (gastroesophageal reflux disease) HTN (hypertension) Overweight Tension type headache Tobacco use Vitamin D deficiency Historical No qualifying data Procedure/Surgical History Cholecystectomy, Partial substernal thyroidectomy, Tubal . Medications amLODIPine 5 mg Tab, 5 mg= 1 tab(s), Oral, Daily Carafate 1 gram Tab, 1 gm= 1 (more content not included)... [facility] Comment on above: Result Comment: Elec tronically Signed By: KENA DE LEÓN, Justin Lozoya\Date and Time Signed: 10/10/23 16:17 EDT Evaluation note 09-29-2023 Note Date & Type Note Facility 05-22-2023 Evaluation note Encounter Date Diagnosis Assessment Notes Apr, Bronchitis (ICD-10 - J40) Drink plenty fluids, get plenty of rest. Take the azithromycin and prednisone as prescribed until gone. Use the albuterol inhaler as prescribed as needed for cough or shortness of breath. Take the benzonatate tablets as prescribed as needed for cough. Do not chew them. You may continue to take the Coricidin for your congestion. Follow-up with your family physician if no improvement in 2 to 3 days Apr, Smoker (ICD-10 - F17.200) [facility] Other Evaluation note 04-17-2023 Note Date & Type Note Facility 04-17-2023 Evaluation note Encounter Date Diagnosis Assessment Notes Mar, Gastroesophageal reflux disease, unspecified whether esophagitis present (ICD-10 - K21.9) Discussed with patient would recommend she starts preventative medication. Will Rx omeprazole 20 mg to be taken regularly for the next month. Advised to follow-up with PCP for refills of this medication. Discussed she may continue [id number] r Pepcid twice daily for the next week or 2 while starting on omeprazole. May use Tums as needed. Patient is advised to avoid caffeine, acidic foods and drinks such as tomato products, spicy foods, citrus. Avoid eating or drinking within 2 hours of bedtime. Keep follow-up appointment with PCP for further evaluation. Patient verbalized understanding of treatment plan. [facility] Other Evaluation note 05-28-2022 Note Date & Type Note Facility 05-28-2022 Evaluation note Encounter Date Diagnosis Assessment Notes May, Contact with and (suspected) exposure to other viral communicable diseases (ICD-10 - Z20.828) May, Acute sinusitis, recurrence not specified, unspecified location (ICD-10 - J01.90) Sinusitis home care material was printed Drink plenty fluids, rest. Try to stop smoking. Take the prednisone as prescribed until gone. Use the fluticasone nasal spray as prescribed until your symptoms improve. Follow-up with your family physician if no improvement in 2 to 3 days. [facility] Other Clinical Note 09-07-2021 Note Date & Type Note Facility 09-07-2021 Note PROCEDURE:CTA CHEST WO W CON COMPARISON: Chest x-ray from 09/07/2021. TECHNIQUE: Contrasted axial slices were obtained of the chest in soft tissue and lung algorithm. Coronal and sagittal maps were provided. 3-D reconstruction was provided. Dose reduction techniques were achieved by using automated exposure control and/or adjustment of mA and/or kV according to patient size and/or use of iterative reconstruction technique. HISTORY: 55-year-old female with chest pain FINDINGS: Timing of the contrast bolus through the main pulmonary artery was adequate, allowing evaluation of the subsegmental arteries. Evaluation of the lungs demonstrates no filling defect within the pulmonary arteries to suggest pulmonary embolism. Further evaluation of the chest shows central lobular emphysematous changes. No pneumothorax, pleural effusion or consolidation. Subtle 3-5 mm groundglass opacities in the right upper lobe (image 39), the right middle lobe (image 48) and the left lower lobe (image 62). Scattered granulomatous calcifications throughout bilateral lungs. The right thyroid appears to be absent. Left thyroid is unremarkable. The imaged soft tissues of the neck are unremarkable. 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 The imaged aorta is normal in course and caliber. Heart size is normal. No pericardial effusion. Circumferential wall thickening is noted throughout the esophagus, progressively worsening towards the gastroesophageal junction. Patient is status post cholecystectomy. Mildly prominent common bile duct in keeping with postcholecystectomy status. There is nodular thickening of the adrenal glands without focal mass. The imaged upper abdomen is otherwise unremarkable. No acute or aggressive bony abnormality. Peripheral soft tissues are unremarkable. IMPRESSION: 1. No pulmonary embolism or acute cardiopulmonary findings. 2. Circumferential thickening of the esophageal lou which progressively worsens towards the gastroesophageal junction. Correlate for signs of esophagitis. 3. Few scattered 3 to 5 mm groundglass opacities as described above. Fleischner criteria recommends follow-up CT at 3-6 months. 4. Centrilobular emphysematous changes. Electronically authenticated by: LARRY MADDOX Date: 2021-09-07 15:06 [facility] History general Narrative - Reported Note Date & Type Note Facility History general Narrative - Reported Type Medical History hypertension Surgical History cholecystectomy Surgical History tubal Surgical History partial thyroidectomy Hospitalization History see above [facility] Other History general Narrative - Reported Note Date & Type Note Facility History general Narrative - Reported Type Medical History hypertension Medical History GERD (gastroesophageal reflux di sease) Surgical History cholecystectomy Surgical History tubal Surgical History partial thyroidectomy Hospitalization History see above [facility] Other Summary Purpose Family History No Family History Records FoundNo Family History Records FoundNo Family History Records FoundNo Family History Records Found Advance Directives No Advanced Directives Records FoundNo Advanced Directives Records FoundNo Advanced Directives Records FoundNo Advanced Directives Records Found Additional Source Comments INFORMATION SOURCE (unrecogn ized section and content) DATE CREATED AUTHOR 01/11/[address] [facility] dical Specialist DATE CREATED AUTHOR AUTHOR'S ORGANIZ ATION 08/23/2022 [facility] DATE CREATED AUTHOR AUTHOR'S ORGANIZ ATION 06/04/2023 [facility] [place] REASON FOR VISIT (unrecogniz ed section and content) SINUS CONGESTION, H/A, COUGH GERD FLARE UP, UNABLE TO GET IN WITH PCPCONGESTION, FOR RECORDS PERTAINING TO PATIENTS WHO ARE OR HAVE BEEN ENROLLED IN A CHEMICAL DEPENDENCY/SUBSTANCEABUSE PROGRAM, SOME INFORMATION MAY BE OMITTED. This clinical summary was aggregated from multiple sources. Caution should be exercised in using it in the provision of clinical care. This summary normalizes information from multiple sources, and as a consequence, information in this document may materially change the coding, format and clinical context of patient data. In addition, data may be omitted in some cases. CLINICAL DECISIONS SHOULD BE BASED ON THE PRIMARY CLINICAL RECORDS. [employer] provides no warranty or guarantee of the accuracy or completeness of information in this document.
[2024-07-15 08:44] LABS: Basophils Absolute Auto 0.1 10^3/uL (0.0-0.1); Basophils Percent Auto 0.7 % (0.2-2.0); Eosinophils Absolute Auto 0.5 10^3/uL (0.0-0.7); Eosinophils Percent Auto 4.8 % (0.9-7.0); Hematocrit 47.7 % (36.0-48.0); Hemoglobin 15.2 g/dL (12.0-16.0); Immature Granulocytes Abs Auto 0.02 10^3/uL (0.00-0.03); Immature Granulocytes Pct Auto 0.2 % (0.0-0.5); Lymphocytes Absolute Auto 2.2 10^3/uL (1.2-3.8); Lymphocytes Percent Auto 20.6 % (20.5-60.0); Mean Corpuscular HGB Conc 31.9 g/dL (29.9-35.2); Mean Corpuscular Hemoglobin 28.4 pg (26.7-34.0); Mean Platelet Volume 9.7 fL (9.5-13.5); Monocytes Absolute Auto 0.8 10^3/uL (0.3-0.8); Monocytes Percent Auto 7.5 % (1.7-12.0); Neutrophils Absolute Auto 7.1 10^3/uL (1.4-6.5); Neutrophils Percent Auto 66.2 % (43.0-75.0); Platelet Count 312 10^3/uL (150-450); Red Blood Count 5.36 10^6/uL (4.20-5.40); Red Cell Distribution Width 12.3 % (11.0-15.0); White Blood Count 10.7 10^3/uL (4.0-11.0)
[2024-07-15 09:04] LABS: Estimated Average Glucose 123 mg/dL; Glycohemoglobin A1C 5.9 % (4.5-6.2)
[2024-07-15 09:19] LABS: Alanine Aminotransferase 22 U/L (14-59); Albumin Globulin Ratio 1.1; Albumin Level 3.7 g/dL (3.4-5.0); Alkaline Phosphatase 129 U/L (46-116); Anion Gap 15.6; Aspartate Amino Transferase 12 U/L (15-37); BUN Creatinine Ratio 13.9; Bilirubin Total 0.2 mg/dL (0.2-1.0); Calcium 9.3 mg/dL (8.5-10.1); Carbon Dioxide 26.7 mmol/L (21.0-32.0); Chloride 103 mmol/L (98-107); Chol HDL Ratio 5.4; Cholesterol 190 mg/dL (<=200); Estimated GFR (African America >60 (>=60 mL/min/1.73m^2); Estimated GFR (Non-African Ame >60 (>=60 mL/min/1.73m^2); Free T3 3.19 pg/mL (2.18-3.98); Globulin 3.3 g/dL; Glucose 105 mg/dL (74-106); HDL Cholesterol 35 mg/dL (40-60); Potassium 4.3 mmol/L (3.5-5.1); Sodium 141 mmol/L (136-145); Thyroid Stimulating Hormone 0.994 uIU/mL (0.358-3.740); Triglycerides 142 mg/dL (<=150); VLDL CHOLESTEROL 28.4 mg/dL
== END 2024-07-15 08:09 | disposition home or self-care (01) ==
LOC: LAB 08:10
PROVIDERS: PCP Family Medicine; Visit Provider Family Medicine
DX: Z00.00 Encounter for general adult medical examination without abnormal findings (principal)
CPT/HCPCS: 36415; 80053; 80061; 83036; 83540; 84436; 84443; 84481; 85025

== ENCOUNTER 2024-07-29 08:48 | Outpatient (OUT) | payer BC, SELFPAY ==
--- NOTE | 2024-07-29 08:55 | CT_ITS ---
[address] [address] Patient Name: CHADWICK MCFADDEN MRN: [id number] date: 1965 Sex: F Assigned Patient Location: MAMMO Current Patient Location: Accession/Order Number: [id number] Exam Date: 07/29/2024 09:00 Report Date: 07/30/2024 05:07 At the request of: JOYCE REA Procedure: CT lung screening low-dose EXAMINATION: CT lung screening low-dose HISTORY: Nicotine Dependence COMPARISON: CT Lung Screening 05/30/2023 TECHNIQUE: Axial, Coronal, and Sagittal images were created without the administration of IV contrast material. Dose reduction techniques were achieved by using automated exposure control and/or adjustment of mA and/or kV according to patient size and/or use of iterative reconstruction technique. FINDINGS: LUNGS: Numerous small calcified and noncalcified nodules scattered within the lungs; largest is within right lower lobe, 6 mm (series 4 image 82). No appreciable change. Mild emphysematous changes. PLEURA: No mass, effusion, or pneumothorax. VASCULATURE: No abnormality. SHRUTHI: No mass or pathologic adenopathy. MEDIASTINUM: No mass or pathologic adenopathy. CARDIAC: No enlargement, pericardial thickening, or pericardial effusion. Coronary Artery calcifications: AORTA: No aneurysm or dissection. CHEST WALL: No mass or axillary adenopathy BONES: No bone lesion or fracture. LIMITED ABDOMEN: No suspicious findings. Limited images of the upper abdomen. OTHER: Negative. CT/CT lung screening low-dose IMPRESSION: 1. Lung-RADS 2- Benign Appearance or Behavior. Nodules with a very low likelihood of becoming a clinically active cancer due to size or lack of growth. Follow-up CT Chest in 1 year. Electronically authenticated by: FELICIA HANSON Date: 07/30/2024 05:07
--- NOTE | 2024-07-29 09:06 | MM_ITS ---
Patient Name: CHADWICK MCFADDEN MR#: [id number] : 1965 Exam Date: 07/29/2024 Ordering Doctor: DR Mathieu Arce . RADIOLOGY REPORT PROCEDURE: MM TOMOSYNTHESIS SCREENING BI COMPARISON: MG MAMM SCREEN 3D CHING CAD, 08/29/2022. INDICATIONS: Screening Calculator Name NCI Breast Cancer Risk Assessment Tool 5 Year Breast Cancer Risk 0.90% Lifetime Breast Cancer Risk 5.90% Personal Breast Cancer No Personal Ovarian Cancer No Treatments None Family Cancers None LOCATION: [facility] BREAST COMPOSITION: There are scattered areas of fibroglandular density. FINDINGS: DIAGNOSTIC CATEGORY 1--NEGATIVE. RIGHT BREAST: No significant suspicious finding. No significant change has occurred. LEFT BREAST: No significant suspicious finding. No significant change has occurred. RECOMMENDATIONS: ROUTINE MAMMOGRAM AND CLINICAL EVALUATION IN 12 MONTHS. PLEASE NOTE: A NORMAL MAMMOGRAM DOES NOT EXCLUDE THE POSSIBILITY OF BREAST CANCER. A CLINICALLY SUSPICIOUS PALPABLE LUMP SHOULD BE BIOPSIED. Dictated by: Gagan Ramsay M.D. on 07/29/2024 at 10:15 Approved by: Gagan Ramsay M.D. on 07/29/2024 at 10:21
== END 2024-07-29 08:49 | disposition home or self-care (01) ==
LOC: MAMMO 08:48
PROVIDERS: PCP Family Medicine; Visit Provider Family Medicine
DX: Z00.00 Encounter for general adult medical examination without abnormal findings (principal); Z12.31 Encounter for screening mammogram for malignant neoplasm of breast; F17.210 Nicotine dependence, cigarettes, uncomplicated; R91.8 Other nonspecific abnormal finding of lung field
CPT/HCPCS: 71271; 77063; 77067